=== PATIENT | male | born 2000 | race African-American/Black ===

== ENCOUNTER 2020-05-15 18:12 | Emergency (ER) | payer SELFPAY ==
--- NOTE | ~2020-05-15 | XR_ITS ---
EXAMINATION: XR shoulder RT min 2V EXAM DATE: 05/15/2020 18:51 INDICATION: Right shoulder dislocation. TECHNIQUE: 3 projections of the right shoulder. No prior study. FINDINGS: There is complete anterior inferior dislocation of the right humeral head. No acute fractu re line is identified, but sometimes there are impaction type Hill-Sachs deformities of the femoral h ead which are not well visualized. Clavicle, acromioclavicular joint are unremarkable. IMPRESSION: Right humeral anterior inferior dislocation. Reviewed, dictated and finalized at location A.
--- NOTE | ~2020-05-15 | XR_ITS ---
EXAMINATION: XR shoulder RT min 2V EXAM DATE: 05/15/2020 19:37 INDICATION: Right shoulder reduction. TECHNIQUE: Frontal and lateral Y projections of the right shoulder. There is no prior study for veronica marcos. FINDINGS: Interval reduction in previously seen right humeral head anterior inferior dislocation. The re is slight inferior subluxation on the frontal projection, could be some ligamentous laxity followi ng recent dislocation. No acute fracture is identified. IMPRESSION: Status post right shoulder reduction, with minimally inferior subluxed humeral head, pro bably some ligamentous laxity from recent dislocation. Reviewed, dictated and finalized at location A. IMPRESSION: Status post right shoulder reduction, with minimally inferior subl uxed humeral head, probably some ligamentous laxity from recent dislocation.
[2020-05-15 18:20] VITALS: BP 139/78; PULSE 79; RESP 17; TEMP 35.7; O2SAT 99
[2020-05-15] MEDS: fentaNYL CITRATE INJ (*CRX) 100 MCG/2 ML VIAL 50 MCG IV PUSH (18:42)
--- NOTE | 2020-05-15 18:58 | ED.GENADULT ---
HPI - General Adult General Chief complaint: Extremity Injury, Upper Stated complaint: my shoulder dislocated Time Seen by Provider: 05/15/20 18:25 Source: patient History of Present Illness HPI narrative: Patient is a 20 y/o male complaining of right shoulder pain starting 2 days ago. He describes his pain as sharp and rates it as 5/10. Movement worsens his pain and he has some pain radiation down right arm. He states that he was playing basketball. He was diving to to a ball and someone sat on his right shoulder. He felt his shoulder popped out. Related Data Home Medications Medication Instructions Recorded Confirmed No Home Medications 05/15/20 05/15/20 Allergies Allergy/AdvReac Type Severity Reaction Status Date / Time No Known Allergies Allergy Unknown Verified 05/15/20 18:29 Review of Systems Constitutional: Constitutional: Denies chills, Denies fever(s), Denies headache(s) and Denies weakness Eyes: Eyes: Denies blurry vision ENT: Denies headache(s) and Denies neck pain Cardiovascular: Cardiovascular: Denies chest pain and Denies dyspnea Respiratory: Respiratory: Denies cough and Denies dyspnea Gastrointestinal: Gastrointestinal: Denies abdominal pain, Denies diarrhea, Denies nausea and Denies vomiting Genitourinary: Genitourinary: Denies hematuria and Denies dysuria Musculoskeletal: Musculoskeletal: Denies back pain, Reports arthralgias (right shoulder pain) and Denies neck pain Neurologic: Denies headache(s) and Denies weakness PMFSH Past Medical History Medical History (Updated 05/15/20 @ 19:44 by Jayla Patton MD) Shoulder dislocation Social History Social History Gender identity (if verbalized by the patient): Male Exam Const: General: no acute distress and well developed Orientation/consciousness: oriented to person, oriented to place, oriented to time and patient oriented x3 HENMT: Head: normocephalic Ears: external ears normal General nose exam: Normal external nose present Eyes: General: appearance normal, both eyes and all related structures Conjunctivae: conjunctivae normal Neck: Neck: normal visual inspection and full ROM Chest: Chest palpation & inspection: normal inspection of the chest and no tenderness Resp: Effort & Inspection: normal respiratory effort Auscultation: clear to auscultation bilaterally Cardio: Rate: regular rate Rhythm: regular rhythm GI: GI Palp: No abdominal tenderness and Yes Soft to palpation Skin: General skin exam: normal color and turgor normal Neuro: General: oriented to person, oriented to place, oriented to time and patient oriented x3 Cognition (Neuro): normal cognition Extrem: General: normal to inspection, full ROM and no pedal edema Right upper extremity: shoulder/upper arm tenderness, abnormal ROM and deformity Psych: Appearance: grossly normal Mental Status: mental status grossly normal Affect: normal affect Course Vital Signs Vital signs: Vital Signs Temperature 35.7 C L 05/15/20 18:20 Pulse Rate 79 05/15/20 18:20 Respiratory Rate 17 05/15/20 18:20 Blood Pressure 139/78 05/15/20 18:20 Pulse Oximetry 99 05/15/20 18:20 Temperature 35.7 C L 05/15/20 18:20 Pulse Rate 79 05/15/20 18:20 Respiratory Rate 17 05/15/20 18:20 Blood Pressure 139/78 05/15/20 18:20 Pulse Oximetry 99 05/15/20 18:20 Procedures Orthopedic Joint Reduction Joint #1: Orthopedic Joint Reduction Date: 05/15/20 Orthopedic Joint Reduction Time: 19:25 Time Out Performed: Yes Side: right Joint Reduction Location: shoulder Analgesia: other (fentanyl) Pre-Procedure Neuro Vascular Exam: normal Shoulder Technique Used (if applicable): external rotation Technique used: direct manipulation Post-reduction neuro exam: intact Post-reduction vascular: intact Post Reduction X-Ray Obtained: Yes Post Reduction X-Ray Results: reduced Sp
--- NOTE | 2020-05-15 20:31 | PC.NURSE ---
shoulder immobilizer placed, erp visualized and assessed at this time.
== END 2020-05-15 20:34 | disposition home or self-care (01) ==
PROVIDERS: Emergency Provider Emergency Medicine
DX: S43.014A Anterior dislocation of right humerus, initial encounter (principal); S43.034A Inferior dislocation of right humerus, initial encounter; W51.XXXA Accidental striking against or bumped into by another person, initial encounter; Y93.67 Activity, basketball
CPT/HCPCS: 23650; 73030; 96374; 99285; J3010

== ENCOUNTER 2020-06-29 23:34 | Emergency (ER) | payer MEDICAID, SELFPAY ==
[2020-06-29 23:43] VITALS: BP 127/88; PULSE 68; RESP 18; TEMP 36.3; O2SAT 100
--- NOTE | 2020-06-30 00:09 | PC.NURSE ---
EDP made aware of pt [place] scoring, unsure about 1:1 sitter at this time.
--- NOTE | 2020-06-30 00:22 | ED.PSYCH ---
HPI - Psych General Chief Complaint: Psychiatric Symptoms Stated Complaint: SI on [employer] tracks Time Seen by Provider: 06/29/20 23:42 Source: patient Mode of arrival: ambulatory Limitations: no limitations History of Present Illness HPI Narrative: This is a 20 year old male who presents for evaluation of suicidal statements. He states he has been talking to a therapist/psychiatrist over the past 2 weeks trying to figure himself out. He does admit to some depression but he states he is not suicidal. He does admit to talking to a friend tonight and he made the statement he will jump in front of a train . He states a train was going by so he made the statement. He states when he says he does not want to be here , he just wants to get out of the situation but does not mean he wants to leave earth. He states he has alot to live for her. He does admit to drinking alcohol tonight. Related Data Home Medications Medication Instructions Recorded Confirmed No Home Medications 05/15/20 05/15/20 Allergies Allergy/AdvReac Type Severity Reaction Status Date / Time No Known Allergies Allergy Unknown Verified 05/15/20 18:29 Review of Systems Review of Systems: All systems reviewed & are unremarkable except as noted in HPI and below PMFSH Past Medical History Medical History (Updated 06/30/20 @ 05:21 by Kimberly Luu MD) Shoulder dislocation Surgical History Surgical History (Updated 06/30/20 @ 00:26 by Kimberly Luu MD) No pertinent past surgical history Social History Social History Substance use type: marijuana Gender identity (if verbalized by the patient): Male Exam Const: General: no acute distress and alert Orientation/consciousness: patient oriented x3 Eyes: EOM: EOMs intact bilaterally Resp: Effort & Inspection: normal respiratory effort Auscultation: clear to auscultation bilaterally Cardio: Rate: regular rate Rhythm: regular rhythm Heart sounds: no murmurs GI: GI Palp: Yes Soft to palpation, No Tenderness to palpation present (GI) and No Guarding due to palpation present (GI) Auscultation: normal bowel sounds Neuro: General: patient oriented x3, moves all extremities and CN's II-XI intact bilaterally Psych: Mental Status: mental status grossly normal Affect: normal affect Course Reevaluation(s) Reevaluation #1: Patient has been resting comfortably. He was evaluated by PEGGY over the phone. Patient has been deemed stable for discharge to continue outpatient management. He does not appear to be harm to himself or any body else at this time. Date: 06/30/20 Time: 05:19 Vital Signs Vital signs: Vital Signs Temperature 97.4 F L 06/29/20 23:43 Pulse Rate 68 06/29/20 23:43 Respiratory Rate 18 06/29/20 23:43 Blood Pressure 127/88 06/29/20 23:43 Pulse Oximetry 100 06/29/20 23:43 Temperature 97.4 F L 06/29/20 23:43 Pulse Rate 97 06/30/20 05:47 Respiratory Rate 18 06/30/20 05:47 Blood Pressure 137/88 06/30/20 05:47 Pulse Oximetry 98 06/30/20 05:47 MDM - Psych Lab Data Attestation: I reviewed the patient's lab results. Result diagrams: 06/30/20 00:28 06/30/20 00:29 Labs: Lab Results 06/30/20 06/30/20 06/30/20 Range/Units 00:28 00:28 00:29 WBC 7.1 (4.5-10.0) K/mm3 RBC 4.34 L (4.6-6.20) M/mm3 Hgb 14.0 (14.0-18.0) g/dL Hct 41.5 L (42.0-52.0) % MCV 95.6 (80-100) fl MCH 32.3 (26-34) pg MCHC 33.7 (32-36) g/dl RDW 12.3 (11.5-14.5) % Plt Count 245 (150-375) k/mm3 MPV 9.0 (7.4-10.4) fl Immature Gran % (Auto) 0.3 (0-0.5) % Neut % (Auto) 68.9 (45.5-73.1) % Lymph % (Auto) 22.3 (18.3-44.2) % Gage % (Auto) 7.1 (2.6-8.5) % Eos % (Auto) 1.0 (0-4.4) % Baso % (Auto) 0.4 (0.2-1.2) % Lymph # (Auto) 1.59 (0.9-3.2) K/mm3 Gage # (Auto) 0.5 (0.1-0.6) K/mm3 Eos # (Auto) 0.1 (0-0.3) K/mm3 Baso # (Auto) 0.0 (0.0-0.1)
[2020-06-30 00:45] LABS: Add Urine Microscopic? YES; Appearance Urine Clear (Clear); Bilirubin Urine Negative (Negative); Blood Urine Negative (Negative); Color Urine Yellow (Yellow); Glucose Urine UA Negative (Negative); Ketones Urine Negative (Negative); Leukocyte Esterase Ur Negative LEU/UL (Negative); Mucus Urine Rare /lpf; Nitrate Urine Negative (Negative); Protein Urine 1+ mg/dL (Negative); RBC Urine 0-2 /hpf (0-2); Specific Grav Ur 1.014 (1.001-1.035); Squamous Epithelial Cell Urine Rare /hpf (Few); Urobilinogen Urine Negative mg/dL (<2.0); WBC Urine 0-3 /hpf
[2020-06-30 00:46] LABS: Ethanol 116 mg/dL (<10)
[2020-06-30 00:46] LABS: Basophils Percent Auto 0.4 % (0.2-1.2); Eosinophils Absolute Auto 0.1 K/mm3 (0-0.3); Hematocrit 41.5 % (42.0-52.0); Immature Granulocyte Absolute 0.02 K/mm3 (0.00-0.031); Immature Granulocyte Percent A 0.3 % (0-0.5); Lymphocytes Absolute Auto 1.59 K/mm3 (0.9-3.2); Lymphocytes Percent Auto 22.3 % (18.3-44.2); Mean Corpuscular HGB Conc 33.7 g/dl (32-36); Mean Corpuscular Hemoglobin 32.3 pg (26-34); Mean Corpuscular Volume 95.6 fl (80-100); Monocytes Absolute Auto 0.5 K/mm3 (0.1-0.6); Monocytes Percent Auto 7.1 % (2.6-8.5); Neutrophils Absolute Auto 4.9 K/mm3 (1.3-6.7); Neutrophils Percent Auto 68.9 % (45.5-73.1); Platelet Count Result 245 k/mm3 (150-375); Red Blood Count 4.34 M/mm3 (4.6-6.20); Red Cell Distribution Width 12.3 % (11.5-14.5); White Blood Count 7.1 K/mm3 (4.5-10.0)
[2020-06-30 00:47] LABS: Alanine Aminotransferase 19 U/L (4-50); Albumin Level 4.6 g/dL (3.5-5.1); Alkaline Phosphatase 63 U/L (38-126); Anion Gap 8 mmol/L (8-16); Aspartate Amino Transferase 52 U/L (17-59); Bilirubin,Total 0.3 mg/dL (0.2-1.3); Blood Urea Nitrogen 11 mg/dL (9-20); Calcium 9.1 mg/dL (8.4-10.2); Carbon Dioxide 29 mmol/L (22-30); Chloride 103 mmol/L (98-107); Estimated CRCL calculation 95 ml/min; Estimated Glomerular Filt Rate > 60; Glucose 87 mg/dL (75-110); Potassium 3.5 mmol/L (3.4-5.0); Sodium 140 mmol/L (137-145)
[2020-06-30 00:59] LABS: Amphetamine Screen Urine Negative (Negative); Barbiturate Screen Urine Negative (Negative); Benzodiazepines Screen Urine Negative (Negative); Cannabinoid Screen Urine Positive (Negative); Cocaine Screen Urine Negative (Negative); Methadone Screen Urine Negative (Negative); Opiate Screen Urine Negative (Negative); Phencyclidine Screen Urine Negative (Negative)
[2020-06-30 01:18] LABS: Thyroid Stimulating Hormone 0.917 uIU/mL (0.465-4.680)
--- NOTE | 2020-06-30 01:51 | PC.NURSE ---
monty kumar states pt does not need sitter at this time. she states she still wants crisis to come out and evaluate pt when etoh is at an appropriate level.
[2020-06-30 03:18] VITALS: BP 127/79; PULSE 72; RESP 18; O2SAT 99
[2020-06-30 03:31] LABS: Ethanol 68 mg/dL (<10)
--- NOTE | 2020-06-30 03:37 | PC.NURSE ---
pt medically cleared, crisis may be called per erp dr millan.
--- NOTE | 2020-06-30 05:20 | PC.NURSE ---
Pt mother contacted for cook pickled meat of pt.
[2020-06-30 05:47] VITALS: BP 137/88; PULSE 97; RESP 18; O2SAT 98
== END 2020-06-30 05:50 | disposition home or self-care (01) ==
PROVIDERS: Emergency Provider General Practice
DX: F32.9 Major depressive disorder, single episode, unspecified (principal)
CPT/HCPCS: 36415; 80053; 80307; 81001; 84443; 85025; 99284

== ENCOUNTER 2022-10-09 18:39 | Emergency (ER) | payer OTHER, SELFPAY ==
[2022-10-09 19:00] VITALS: BP 128/86; PULSE 87; RESP 18; TEMP 37.1; O2SAT 99
--- NOTE | 2022-10-09 20:29 | ED.DENTAL ---
HPI - Dental/Oral General Chief complaint: Dental/Oral Stated complaint: L SIDED FACIAL SWELLING Time Seen by Provider: 10/09/22 19:28 History of Present Illness HPI Narrative: 22-year-old male presented ED for evaluation for left-sided facial swelling and dental pain. Patient states he woke up this morning and had dental pain and facial swelling. Patient does not have a significant history of dental caries. Patient denies any difficulty breathing or swallowing. Patient denies any pain submandibular or pain rating down his chest. Patient has not yet secured a dentist for follow-up. Related Data Allergies Allergy/AdvReac Type Severity Reaction Status Date / Time No Known Allergies Allergy Unknown Verified 10/09/22 19:10 Review of Systems Review of Systems: All systems reviewed & are unremarkable except as noted in HPI and below PMFSH Past Medical History Medical History (Updated 10/09/22 @ 20:32 by Jerome Larson MD) Shoulder dislocation Surgical History Surgical History (Updated 06/30/20 @ 00:26 by Kimberly Luu MD) No pertinent past surgical history Social History Social History Substance use type: marijuana Gender identity (if verbalized by the patient): Male Exam Narrative: APPEARANCE: Well appearing, no pain, no distress, well-nourished. HEAD: normocephalic, atraumatic. EYES: PERRLA/EOMI, conjunctivae clear. NOSE: Normal no drainage Mouth: Draining dental abscess THROAT: Pharynx clear, no exudate. NECK: Supple. No adenopathy, no masses. RESPIRATORY: Airway patent, respirations nonlabored. Clear to auscultation bilaterally, no rales, rhonchi, wheezing. CARDIOVASCULAR: Regular rate and rhythm without murmurs rubs or gallops. ABDOMINAL: Soft, nontender, nondistended, normal bowel sounds MUSCULOSKELETAL: Moves all extremities. Strength/ROM intact, No edema, No calf tenderness. NEURO: Alert. Cranial nerves II through XII intact. Grossly intact SKIN: Warm, dry. Normal Color Course Course Emergency Course: 22-year-old male presented ED for evaluation of left-sided facial swelling. Abscess began to drain after palpation with the tongue depressor. As the abscess drained more in the emergency department patient states that he had improvement of left-sided facial pressure. Patient was started on the Augmentin in the emergency department and was discharged home with Augmentin. Patient was encouraged of close follow-up with a dentist. Patient was also educated on reasons to return to the emergency department. All questions and concerns were addressed. Vital Signs Vital signs: Vital Signs Temperature 98.8 F 10/09/22 19:00 Pulse Rate 87 10/09/22 19:00 Respiratory Rate 18 10/09/22 19:00 Blood Pressure 128/86 10/09/22 19:00 Pulse Oximetry 99 10/09/22 19:00 Oxygen Delivery Room Air 10/09/22 19:00 Temperature 98.8 F 10/09/22 19:00 Pulse Rate 69 10/09/22 20:55 Respiratory Rate 17 10/09/22 20:55 Blood Pressure 122/69 10/09/22 20:55 Pulse Oximetry 99 10/09/22 20:55 Oxygen Delivery Room Air 10/09/22 19:00 Procedures Abscess I/D oral: Side (if applicable): left Local Anesthetic: none Technique: other (Tongue depressor) Irrigation: Yes Packing used?: none I&D Results: Pus and Blood Discharge Plan Discharge Clinical Impression: Dental abscess Patient Disposition: Home, Self-Care Condition: Stable Instructions: Antibiotic Form, Dental Abscess (ED) Additional Instructions: Antibiotic as directed until completed. Have close follow-up with a dentist. If you have any worsening symptoms then please call or return to the emergency department. Prescriptions: New amoxicillin-pot clavulanate 875-125 mg tablet 1 tablet PO Q12H Qty: 14 0RF Follow-up/Referrals: Darin,Diane Dixon MD [Primary Care Provider] - Stand Alone Forms: Work/School Release IP
[2022-10-09] MEDS: AMOXICILLIN/CLAVULANATE K 875-125 MG TAB 1 TABLET PO (20:33)
[2022-10-09 20:55] VITALS: BP 122/69; PULSE 69; RESP 17; O2SAT 99
== END 2022-10-09 20:43 | disposition home or self-care (01) ==
PROVIDERS: Emergency Provider Emergency Medicine; PCP Family Medicine
DX: K04.7 Periapical abscess without sinus (principal)
CPT/HCPCS: 99283; A9270

== ENCOUNTER 2023-09-21 15:36 | Emergency (ER) | payer SELFPAY ==
--- NOTE | ~2023-09-21 | XR_ITS ---
EXAMINATION: XR humerus LT DATE: 09/21/2023 18:36 INDICATION: Laceration to the left upper arm TECHNIQUE: AP and lateral views of the left humerus were obtained. COMPARISON: None. FINDINGS: Bone alignment is normal. No fracture. Joint spaces appear normal. Small heterotopic ossicl e projecting over the soft tissues alongside the proximal left humeral neck. Subtle lenticular lucenc y projecting over the soft tissues at the lateral side of the distal upper arm likely representing th e site of reported laceration. No radiopaque foreign bodies. IMPRESSION: 1. No radiopaque foreign bodies or osseous abnormality. Reviewed, dictated and finalized at location A.
[2023-09-21 15:39] VITALS: BP 122/81; PULSE 85; RESP 16; TEMP 36.6; O2SAT 94
--- NOTE | 2023-09-21 18:30 | ED.WOUNDLAC ---
HPI - Wound/Laceration General Chief Complaint: Wound/Laceration Stated Complaint: LACERATION Time Seen by Provider: 09/21/23 17:56 History of Present Illness HPI narrative: 23-year-old male presents to the emergency department for a laceration to his left arm that occurred today around 3:00 p.m.. Patient states he accidentally cut himself on a hook blade. Last Tdap unknown. Denies difficulty with range of motion of his arm. Related Data Allergies Allergy/AdvReac Type Severity Reaction Status Date / Time No Known Allergies Allergy Unknown Verified 10/09/22 19:10 Review of Systems Review of Systems: All systems reviewed & are unremarkable except as noted in HPI and below PMFSH Past Medical History Medical History Shoulder dislocation Surgical History Surgical History No pertinent past surgical history Social History Social History Substance use type: marijuana Gender identity (if verbalized by the patient): Male Exam Narrative: GENERAL: Well-appearing, well-nourished, and in no acute distress. HEAD: Normocephalic, atraumatic. NECK: Supple. CHEST: Clear to auscultation. No respiratory distress. HEART: Regular rate and rhythm. No murmur heard. Normal peripheral pulses. EXTREMITIES: Normal range of motion. No edema. SKIN: 3cm linear laceration to the volar aspect of the humerus. Bleeding controlled. No deep structures or foreign bodies visualized. Patient has full active range of motion of upper extremity, radial, medial and ulnar nerves are intact. DP pulses 2+. Sensation intact throughout. NEURO: No focal deficits. Alert and oriented x3 Course Vital Signs Vital signs: Vital Signs Temperature 97.8 F 09/21/23 15:39 Pulse Rate 85 09/21/23 15:39 Respiratory Rate 16 09/21/23 15:39 Blood Pressure 122/81 09/21/23 15:39 Pulse Oximetry 94 09/21/23 15:39 Oxygen Delivery Room Air 09/21/23 15:39 Temperature 97.8 F 09/21/23 15:39 Pulse Rate 85 09/21/23 15:39 Respiratory Rate 16 09/21/23 15:39 Blood Pressure 122/81 09/21/23 15:39 Pulse Oximetry 94 09/21/23 15:39 Oxygen Delivery Room Air 09/21/23 15:39 Procedures Laceration Laceration 1: Date: 09/21/23 Time: 19:40 Site: upper extremity Side (If applicable): left Size (cm): 3 Description: linear Depth: simple, single layer Local Anesthetic: lidocaine 1% and with epi Amount of anesthesia used (mL): 3 Pre-repair: wound explored and irrigated ====== Skin Level ====== Skin layer closed with: nylon Size (cm): 4-0 Number of sutures: 4 Technique: simple, interrupted ====== Subcutaneous Layer ====== ====== Muscle Layer ====== ====== Tendon Layer ====== MDM - Wound/Laceration MDM Narrative Medical decision making narrative: 23-year-old male presents to the emergency department for a laceration to the volar aspect of his left humerus that occurred this afternoon. Vital stable. Exam is significant for the above. He is neurovascularly intact. Bleeding is controlled. Tetanus updated here. X-ray of the humerus shows no acute osseous abnormality, no foreign bodies. Laceration irrigated extensively and closed with 4 sutures without complications. Discussed wound care and suture removal in 7 days. Strict ED return precautions discussed. He is agreeable to plan and verbalized understanding. Discharged in stable condition. Discharge Plan Discharge Clinical Impression: Laceration Patient Disposition: Home, Self-Care Condition: Stable Instructions: Antibiotic Form, Care For Your Stitches (ED), Laceration (ED) Additional Instructions: Your evaluated in the emergency department for laceration to her left arm. F
--- NOTE | 2023-09-21 18:42 | PC.NURSE ---
wound cleaned per order from provider
[2023-09-21] MEDS: TETANUS,DIPHTHERIA,AC PERTUSSIS ADULT (0.5 ML) BOOSTRIX IM (19:45)
== END 2023-09-21 19:51 | disposition home or self-care (01) ==
PROVIDERS: Emergency Provider Physician Assistant
DX: S41.112A Laceration without foreign body of left upper arm, initial encounter (principal); W26.0XXA Contact with knife, initial encounter; Z23 Encounter for immunization
CPT/HCPCS: 12002; 73060; 90471; 90715; 99283